=== PATIENT | male | born 1985 | race American Indian/Alaskan Native ===

== ENCOUNTER 2017-11-19 08:05 | Emergency (ER) | payer OTHER ==
[2017-11-19 08:12] VITALS: BMI 26.2
[2017-11-19 08:15] VITALS: RESP 18
[2017-11-19] MEDS ORDERED: Sodium Chloride 0.9% 1,000 ML IV STA (08:31)
[2017-11-19] MEDS ORDERED: Alum-Mag Hydrox-Simethicone Susp (30 mL) PO STA (08:31)
--- NOTE | 2017-11-19 08:47 | RAD ---
HISTORY: epigastric pain COMPARISON: No prior. FINDINGS: LUNGS: No active pulmonary disease. PLEURA: No significant pleural effusion identified, no pneumothorax apparent. CARDIOVASCULAR: Normal. OSSEOUS STRUCTURES: No significant abnormalities. VISUALIZED UPPER ABDOMEN: Normal. OTHER FINDINGS: None. IMPRESSION: No active disease.
[2017-11-19 09:29] LABS: BASO # 0.02 K/mm3 (0.0-2.0); BASO % 0.4 % (0.0-3.0); EOS # 0.2 (0.0-0.7); EOS % 3.6 % (1.5-5.0); GRAN # 3.13 (1.4-6.5); GRAN % 59.7 % (50.0-68.0); HEMOGLOBIN 13.4 g/dL (14.0-18.0); LYMPH # 1.4 (1.2-3.4); LYMPH % 27.1 % (22.0-35.0); MEAN CELL VOLUME 85.2 fl (80.0-105.0); MEAN CORPUSCULAR HEMOGLOBIN 29.2 pg (25.0-35.0); MEAN CORPUSCULAR HGB CONC 34.3 g/dl (31.0-37.0); MEAN PLATELET VOLUME 10.2 fl (7.0-11.0); MONO # 0.5 (0.1-0.6); MONO % 9.2 % (1.0-6.0); RBC 4.59 10^6/uL (3.5-6.1); WHITE BLOOD COUNT 5.2 10^3/ul (4.5-11.0)
[2017-11-19 09:36] LABS: ALB/GLOB RATIO 1.2 (1.1-1.8); ALBUMIN 3.9 g/dL (3.0-4.8); ALT/SGPT 30 U/L (7-56); AST/SGOT 19 U/L (17-59); BLOOD UREA NITROGEN 9 mg/dL (7-21); CALCIUM 9.2 mg/dL (8.4-10.5); GFR AFRICAN-AMERICAN > 60; GFR NON-AFRICAN AMERICAN > 60; LIPASE 103 U/L (23-300)
--- NOTE | 2017-11-19 09:37 | ED PDOC ---
Arrival/HPI - General Chief Complaint: Chest Pain Time Seen by Provider: 11/19/17 08:30 Historian: Patient - History of Present Illness Narrative History of Present Illness (Text): 11/19/17 08:51 Aimee Mg is a 32 year old male who presents to the emergency department complaining of non-radiating midsternal chest pain for 2.5 days. Patient describes his pain as a burning sensation. Patient notes that his girlfriend is in the hospital for an appointment, so patient came to emergency department for evaluation of symptoms. Patient denies any fever, nausea, or any other complaints at this time. Time/Duration: < week Symptom Onset: Gradual Symptom Course: Unchanged Context: Home Past Medical History - Provider Review Nursing Documentation Reviewed: Yes - Psychiatric Hx Psychophysiologic Disorder: No Hx Substance Use: No Family/Social History - Physician Review Nursing Documentation Reviewed: Yes Family/Social History: No Known Family HX Smoking Status: Never Smoked Hx Alcohol Use: Yes Frequency of alcohol use: Socially Hx Substance Use: No Allergies/Home Meds Allergies/Adverse Reactions: Allergies No Known Allergies Allergy (Verified 11/19/17 08:12) Review of Systems - Physician Review All systems were reviewed & negative as marked: Yes - Review of Systems Constitutional: absent: Fevers, Night Sweats Eyes: absent: Vision Changes ENT: absent: Hearing Changes Respiratory: absent: SOB, Cough Cardiovascular: Chest Pain Gastrointestinal: absent: Abdominal Pain Genitourinary Male: absent: Dysuria, Frequency Musculoskeletal: absent: Arthralgias Skin: absent: Rash, Pruritis Neurological: absent: Headache Endocrine: absent: Diaphoresis Hemo/Lymphatic: absent: Adenopathy Psychiatric: absent: Anxiety, Depression Physical Exam - Physical Exam Narrative Physical Exam (Text): Constitutional: No acute distress. Head: Normocephalic. Atraumatic. Eyes: PERRL. ENT: Moist mucous membranes. Neck: Supple. Cardiovascular: Regular rate. Chest: No tenderness. Respiratory: Clear to auscultation bilaterally. GI: Soft. Nontender. Nondistended. Back: No CVA tenderness. Musculoskeletal: No tenderness or swelling of extremities. Skin: No rash. Neurologic: Alert, no focal deficit. Vital Signs Reviewed: Yes Vital Signs Temp Pulse Resp BP Pulse Ox 11/19/17 08:14 98.0 F 71 18 136/98 H 99 Temperature: Afebrile Blood Pressure: Hypertensive Pulse: Regular Respiratory Rate: Normal Appearance: Positive for: Well-Appearing, Non-Toxic, Comfortable Pain Distress: None Mental Status: Positive for: Alert and Oriented X 3 Medical Decision Making ED Course and Treatment: Impression: 32 year old male complaining of non-radiating midsternal chest pain for 2.5 days. Plan: -- EKG -- Labs -- Maalox, Pepcid, Zofran, and IV Fluids -- Reassess and disposition Progress Notes: 11/19/17 09:41 Chest X-ray: Creator : Mason Davis MD FINDINGS: LUNGS:No active pulmonary disease. PLEURA:No significant pleural effusion identified, no pneumothorax apparent. CARDIOVASCULAR:Normal. OSSEOUS STRUCTURES:No significant abnormalities. VISUALIZED UPPER ABDOMEN:Normal. OTHER FINDINGS:None. IMPRESSION: No active disease. EKG NSR 60 bpm, no ST/T wave changes. Discharged home, f/u GI, return to ED for worsening pain, dyspnea, vomiting, fever, or any other problem. - Lab Interpretations Lab Results: 11/19/17 09:17 11/19/17 09:17 Lab Results 11/19/17 09:17: Sodium 147, Potassium 4.3, Chloride 105, Carbon Dioxide 30, Anion Gap 17, BUN 9, Creatinine 0.8, Est GFR ( Amer) > 60, Est GFR (Non- Af Amer) > 60, Random Glucose 96, Calcium 9.2, Total Bilirubin 0.5, AST 19, ALT 30, Alkaline Phosphatase 39, Troponin I < 0.01, Total Protein 7.1, Albumin 3.9, Globulin 3.2, Albumin/Globulin Ratio 1.2, Lipase 103 11/19/17 09:17: WBC 5.2, RBC 4.59, Hgb 13.4 L, Hct 39.1 L, MCV 85.2, MCH 29.2, MCHC 34.3, RDW 13.0, Plt Count 217, MPV 10.2, Gran % 59.7, Lymph % (Auto) 27.1, [place] % (Auto) 9.2 H, Eos % (Auto) 3.6, Baso % (Auto) 0.4, Gran # 3.13, Lymph # ( Auto) 1.4, [place] # (Auto) 0.5, Eos # (Auto) 0.2, Baso # (Auto) 0.02 I have reviewed the lab results: Yes - RAD Interpretation Radiology Orders: 11/19/17 08:30 CHEST PORTABLE [RAD] Stat - Medication Orders Current Medication Orders: Discontinued Medications Al Hydrox/Mg Hydrox/Simethicone (Maalox Plus 30 Ml) 30 ml PO STAT STA Stop: 11/19/17 08:32 Last Admin: 11/19/17 09:17 Dose: 30 ml Famotidine (Pepcid) 20 mg IVP STAT STA Stop: 11/19/17 08:32 Last Admin: 11/19/17 09:20 Dose: 20 mg IVP Administration Document 11/19/17 09:20 (Rec: 11/19/17 09:20 [id number] Charges for Administration # of IVP Administrations 1 Sodium Chloride (Sodium Chloride 0.9%) 1,000 mls @ 999 mls/hr IV .Q1H1M STA Stop: 11/19/17 09:31 Last Admin: 11/19/17 09:21 Dose: 999 mls/hr eMAR Start Stop Document 11/19/17 09:21 (Rec: 11/19/17 09:21 [id number] Intravenous Solution Start Date 11/19/17 Start Time 09:21 Ondansetron HCl (Zofran Inj) 8 mg IVP STAT STA Stop: 11/19/17 08:32 Last Admin: 11/19/17 09:21 Dose: 8 mg IVP Administration Document 11/19/17 09:21 (Rec: 11/19/17 09:21 [id number] Charges for Administration # of IVP Administrations 1 - Scribe Statement The provider has reviewed the documentation as recorded by the Esequielibe Elaina Helm Provider Scribe Attestation: All medical record entries made by the Scribe were at my direction and personally dictated by me. I have reviewed the chart and agree that the record accurately reflects my personal performance of the history, physical exam, medical decision making, and the department course for this patient. I have also personally directed, reviewed, and agree with the discharge instructions and disposition. Disposition/Present on Arrival - Present on Arrival Any Indicators Present on Arrival: No History of DVT/PE: No History of Uncontrolled Diabetes: No Urinary Catheter: No History of Decub. Ulcer: No History Surgical Site Infection Following: None - Disposition Have Diagnosis and Disposition been Completed?: Yes Diagnosis: Epigastric pain Disposition: HOME/ ROUTINE Disposition Time: 09:55 Patient Plan: Discharge Condition: STABLE Discharge Instructions (ExitCare): Acute Abdomen (Belly Pain), Adult (DC) Referrals: Tanya Bowers MD [Medical Doctor] - Follow up with primary Forms: [employer] (Spanish)
[2017-11-19 09:48] LABS: TROPONIN I < 0.01 ng/mL
[2017-11-19 10:41] VITALS: TEMP 98.5
[2017-11-19 10:45] VITALS: BP 139/80; PULSE 64; O2SAT 100
--- NOTE | 2017-11-19 23:41 | CARD ---
APPROVED REPORT EKG Measurement Heart [id number] <Conclusion> Normal sinus rhythm Normal ECG
== END 2017-11-19 10:45 | disposition home or self-care (01) ==
LOC: MERGE 08:05 → ED 08:05
DX: R10.13 Epigastric pain (principal)
CPT/HCPCS: 71045; 80053; 83690; 84484; 85025; 93005; 96374; 96375; 99284; J2405; J7030